=== PATIENT | female | born 1990 | race Asian ===

== ENCOUNTER 2018-10-27 16:09 | Inpatient (IN) | payer OTHER ==
[~2018-10-27] VITALS: Ht 165.1 cm; Wt 54.0 kg
[2018-10-27] MEDS ORDERED: FAMOTIDINE(*) 20MG/50ML PREMIX 50 ML IVPB PRN (17:22)
[2018-10-27] MEDS ORDERED: DLR(*) 1000 ML BAG 1,000 ML IV PRN (17:22)
[2018-10-27] MEDS ORDERED: OXYTOCIN 30 UNIT/NS 500 ML 500 ML IV PRN (17:22)
[2018-10-27] MEDS ORDERED: FLUSH 10 ML SYR IVP PRN (17:25)
[2018-10-27] MEDS ORDERED: LIDOCAINE 1% LOCAL 300 MG/30ML INJ PRN (17:25)
[2018-10-27] MEDS ORDERED: DINOPROSTONE 10 MG INSERT PV ONE (17:25)
[2018-10-27] MEDS ORDERED: cefOXitin/DEX(*) 2GM/50ML PREM 50 ML IVPB PRN (17:25)
[2018-10-27] MEDS ORDERED: METOCLOPRAMIDE 10 MG/2 ML SDV IVP PRN (17:25)
[2018-10-27] MEDS ORDERED: fentaNYL CITR 100 MCG/2 ML AMP IVP PRN (17:25)
[2018-10-27 17:55] LABS: PLATELET COUNT, AUTOMATED 184 K/uL (150-450)
[2018-10-27] MEDS: LR(*) 1000 ML BAG 1,000 ML IV PRN (18:28)
--- NOTE | 2018-10-27 23:19 | Anesthesia OB Pre-Anes Eval ---
History of Present Illness Anesthesia Start Date: Oct 27, 2018 Anesthesia Start Time: 23:02 OB Anesthesia Diagnosis: spontaneous ROM, other (labor augmentation r/t SROM) Complications: None known EDC: Nov 14, 2018 : 1 Para: 0 Pain Ratin (Pt demonstrates anxiety and pain. IV pain med discussed with pt. and her RN, until regular contraction pattern is established and pt progresses into labor.) Heart Tones: 133 Result Diagram: 10/27/18 1744 Height (Inches): 65 Weight (Pounds): 119 BMI (kg/m2): 19 GBS neg Past Medical History Medical History: no pertinent history (Pt denies all medical problems) Surgical History: no surgical history Attended Childbirth Classes?: No Hx Anesthesia Reactions: No Hx Family Anesthesia Reaction: No Current Medications: pitocin Allergies: Coded Allergies: Penicillins (Verified Allergy, Intermediate, Rash/ swelling, 10/27/18) Anesthesia OB ROS Neurological: No migraines/headaches, No seizures, No neuropathy, No other Eyes ROS: contacts out ENT: Denies Tooth caps, Denies Loose teeth, Denies Chipped teeth, Denies Dentures, Denies Bridges, Denies Retainers, Denies Veneers, Denies Implants, Denies Tongue ring, Denies Other Pulmonary: No asthma, No smoker (pks/day/yrs), No other Airway Class: ll Cardiovascular ROS: No edema, No arrhythmia, No other GI ROS: clear liquids Last Solids Date: Oct 27, 2018 Last Solids Time: 15:00 ROS: No Herpes, No STD(s), No Liver Disease, No Renal Disease, No Other Endocrine ROS: No diabetes, No gestational diabetes, No thyroid disorder, No other Musculoskeletal ROS: No low back pain, No low back injury, No scoliosis, No other ASA Classification: 2 Assessment and Plan Anesthesia Plan: CSE Assessment: Anxious and pacing room. Pt. demonstrates good understanding of Polish, through appropriate questions, during explantion of risks alternatives and emergency procedures. Her mother is at her side and speaks tristanian only, but is calm and supportive. MACKENZIE TRAORE CRNA Oct 27, 2018 23:19
[2018-10-28] MEDS ORDERED: ZOLPIDEM TARTRATE 5 MG TAB PO ONE (00:30)
[2018-10-28] MEDS: fentaNYL CITR 100 MCG/2 ML AMP IVP PRN ×2 (01:45→03:39)
[2018-10-28] MEDS: LR(*) 1000 ML BAG 1,000 ML IV PRN ×2 (03:30→04:03)
[2018-10-28] MEDS ORDERED: fentaNYL CITR 100 MCG/2 ML AMP IT PRN (04:10)
[2018-10-28] MEDS ORDERED: LIDO/EPI 2% MPF 1:200,000 20ML EPI PRN (04:10)
[2018-10-28] MEDS ORDERED: diphenhydrAMINE 50 MG/ML VIAL IV PRN (04:10)
[2018-10-28] MEDS ORDERED: NALBUPHINE HCL 10 MG/ML AMP IVP PRN (04:10)
[2018-10-28] MEDS ORDERED: FENTANYL/ROPIVACAINE 100 ML BAG EPI PRN (04:10)
[2018-10-28] MEDS ORDERED: BUPIVACAINE 0.25% MPF INJ EPI PRN (04:10)
[2018-10-28] MEDS ORDERED: BUPIVACAINE 0.5% INJ 30ML VIAL EPI PRN (04:10)
[2018-10-28] MEDS ORDERED: LIDOCAINE/PF 2% 200MG/10ML AMP 200 MG/10 ML AMPUL EPI PRN (04:10)
[2018-10-28] MEDS ORDERED: NALOXONE HCL 0.4 MG/ML VIAL IV PRN (04:10)
[2018-10-28] MEDS ORDERED: fentaNYL CITR 100 MCG/2 ML AMP ONE (04:14)
[2018-10-28] MEDS ORDERED: FENTANYL/ROPIVACAINE 100ML BAG 100 ML ONE (04:14)
[2018-10-28] MEDS ORDERED: BUPIVACAINE 0.25% MPF INJ ONE (04:14)
--- NOTE | 2018-10-28 05:19 | Procedure Note ---
Anesthetic Placement Note Anesthesia Plan: CSE Permit for Anesthesia Signed: Yes Anesthesia Technique: Patient Sitting Anesthesia Prep: Chlorhexidine (Sterile hand scrub, Time out, pt w hat, COMMUNITY DEVELOPMENT WORKER hat sterile gloves and mask, traffic stopped. Clear fenestrated drape.) Interspace: L 3-4 (midline) Local Anesthetic: 1% Lidocaine, 25 Gauge Needle Amount Local - cc's: 2 Anesthesia Needle: 17g Touhy/Schliff Loss of Resistance: Normal Saline Epidural Needle Placement: No CSF, No Blood, No Parasthesia Intrathecal Needle: 27 Gauge Pencan Cerebral Spinal Fluid: Yes, Clear Catheter Insertion (cm): 3.4 Catheter Type: Hamm - Spring Wound Epidural Dressing: Tegaderm, Tape (left abdomen) Anesthesia Tray: Lot Number ([id number]), Expiration Date (2019-10-05), Reference Number ([id number]) Comment: describes 9/10 pain at peak contraction. Pt. is stable alert and cooperative. Anesthesia Medications: Intrathecal Dose: mcg Fentanyl (15 mcg), mg Marcaine MPF (2), Time (0428) Epidural Test Dose: 1.5 Lido/Epi (1:200,000), Dose - mL (3), Time (0431), Negative Epidural Infusion: 0.2% Ropivicaine, With Fentanyl 2mcg/ml, Start Time: (0450) Epidural Pump Setting: Bolus Dose - mL (5), Lockout - Minutes (20), Maintenance Rate - mL/hr ( 7), Maximum per Hour - mL (22) Complications: None Comment: Pt reports decrease in pain from 9/10 to 1/10 within 3 minutes of intrathecal dose. MACKENZIE SWEET CRNA Oct 28, 2018 05:19
--- NOTE | 2018-10-28 12:07 | Anesthesia Progress Note ---
Progress/Maintenance Anesthesia Note Date: Oct 28, 2018 Anesthesia Note Time: 09:30 Pain Intensity: 6 (patient has used the pt administered bolus feature x 2 in the last hour. She is starting into transition.) Pump: On Pump Rate (ML/HR): 7 Sensory Level: T-8 Motor Level: Bending Knees-Bilateral (Left leg block > right.) Dilatation: 6 Position: Left, Tilt Drug Bolus: 0.25% Marcaine (5), Other (Fentanyl 50 mcg) Anesthesia Treatment: relief of carey on right 10 minutes after this bolus with reposition MACKENZIE REDDY CRNA Oct 28, 2018 12:07
[2018-10-28] MEDS ORDERED: INFLUENZA VIRUS VAC 0.5ML SYR IM ONLY ONE (12:10)
[2018-10-28] MEDS ORDERED: HYDROCORTISONE 2.5% CR 30GM TB PR PRN (12:10)
[2018-10-28] MEDS ORDERED: LANOLIN OINT 7 GM TUBE TP PRN (12:10)
[2018-10-28] MEDS ORDERED: BENZOCAINE 20% 60 ML BTL TP PRN (12:10)
[2018-10-28] MEDS ORDERED: GLYCERIN/WITCH HAZEL LEAF 1 PK TP PRN (12:10)
[2018-10-28] MEDS ORDERED: MAGNESIUM HYDROXIDE* 30ML UDCP PO PRN (12:10)
--- NOTE | 2018-10-28 12:15 | History & Physical ---
History of Present Illness Age of Patient: 28 : 1 Para or TPAL: 0 EDC per LMP: Nov 14, 2018 Estimated Gestational Age: 37.4 Chief Complaint SROM History of Present Illness Presents with spontaneous rupture of membranes at 1545. Pt was 1.5 cm dilated and Cervidil placed for cervical ripening. Clear fluid. has been u ncomplicated. Past Medical, Surgical, Family and Obstetric Histories reviewed. Please see OG chart. History Allergies: Coded Allergies: Penicillins (Verified Allergy, Intermediate, Rash/ swelling, 10/27/18) Review of Systems All Systems Reviewed/Normal: Yes, Except as Noted Exam General Exam General Apperance: Alert/Awake/No Acute Distress Neuro: No Gross deficits Cardiovascular: Regular Rate and Rhythm Respiratory: No Respiratory Distress Abdomen: Soft, Non-Tender, Non-Distended Extremities: No Cyanosis,Clubbing or Edema Integumentary: Skin Intact without Lesions or Rash Psychological: Alert & Oriented X3, Appropriate Mood & Affect Vaginal Discharge/Fluid?: Bloody Show, Clear Fluid Cervical Dialation: 1.5 Fetus Heart Tone Variabilty: Moderate FHT Accelerations: 15X15 FHT Category: I Medical Decision Making Data Points Result Diagram: 10/27/18 1744 VTE Prophylasis: Adult Deep Vein Thrombosis/Pulmonary: No Pharmacological Contraindicati: Pt at Low Risk for VTE Mechanical Contraindications: Pt at Low Risk for VTE Assessment and Plan CORRECTIONAL THERAPY DIRECTOR Plan: Routine Labor Care, Routine Labor/Induct Care Problems: (1) Normal labor (2) 37 weeks gestation of LAURA RICHARDS MD Oct 28, 2018 12:15
--- NOTE | 2018-10-28 12:20 | OB Delivery Note ---
Delivery Note Vaginal Delivery Type: Vacuum (+3/3 station, Kiwi vacuum, single contraction with assistance) Delivery Date: Oct 28, 2018 Delivery Time: 11:34 Estimated Gestational Age(wks): 37.4 Delivery Anesthesia: Epidural Infant Sex: Male Apgars: 1 Minute (8), 5 Minute (9) Repair Needed: Laceration, 2nd Degree Estimated Blood Loss: 300 Delivery Complications: Laceration Notes: Progressed with Cervidil overnight to 3 cm dilation to 0445. Pt was 9 cm by 0954 and complete at 1027. Effective pushing but prolonged deceleration noted after contraction near the end. Consent for vacuum assistance obtained. Kiwi vacuum easily applied and over next contraction delivery over second degree laceration. Nuchal cord x 1 tight, delivered through. Placenta delivered intact and spontaneous. Repair with 2-0 chromic with excellent result. No complications. Bracer in Attendence: No Copies to: LAURA RICHARDS MD ; LAURA RICHARDS MD Oct 28, 2018 12:19
--- NOTE | 2018-10-28 12:22 | Anesthesia Progress Note ---
Progress/Maintenance Anesthesia Note Date: Oct 28, 2018 Anesthesia Note Time: 12:04 Pain Intensity: 0 Pump: Off (Turned off after 2 degree vaginal tear repaired 1200) Pump Rate (ML/HR): 0 Sensory Level: T-10 bilat Motor Level: Bending Knees-Bilateral Position: Semi-Fowlers (Holding to breast. Delivery at 1134. Ane sthesia stopped when epidural pump turned off, after 2nd degree vaginat tear repair.) MACKENZIE TRAORE CRNA Oct 28, 2018 12:22
[2018-10-28] MEDS: IBUPROFEN 800 MG TAB PO SCH ×2 (14:16→22:15)
[2018-10-28 16:40] VITALS: BP 95/51
[2018-10-28] MEDS: DOCUSATE CALCIUM 240 MG CAP PO SCH (19:26)
[2018-10-28] MEDS: APAP/HYDROCODONE 325/5 TAB PO PRN (19:26)
[2018-10-28 20:30] VITALS: BP 103/68
[2018-10-29 00:45] VITALS: BP 94/58
[2018-10-29] MEDS: APAP/HYDROCODONE 325/5 TAB PO PRN (01:46)
[2018-10-29 05:00] VITALS: BP 91/51
[2018-10-29] MEDS: IBUPROFEN 800 MG TAB PO SCH ×2 (07:13→15:09)
[2018-10-29 08:00] VITALS: BP 94/62
[2018-10-29] MEDS: ACETAMINOPHEN 325 MG TAB PO PRN ×2 (08:02→15:09)
--- NOTE | 2018-10-29 08:06 | OB/GYN Progress Note ---
OB Subjective Progress Notes Subjective Doing well. Pain well controlled and ambulating and voiding well. Bleeding light. GI: NEG Nausea : Voiding Well Pain: Mild OB Objective Physical Exam Vital Signs Date Time Temp Pulse Resp B/P (MAP) Pulse Ox O2 Delivery O2 Flow Rate FiO2 10/29/18 05:00 97.2 63 16 91/51 (64) 95 Room Air Intake and Output 10/29/18 07:03 Intake Total 500 ml Output Total 400 ml Balance 100 ml Intake Oral 0 ml IV Total 500 ml Output Urine Total 400 ml # Voids 2 General Appearance: Alert/Awake/No Acute Distress Neurological: No Gross deficits Cardiovascular: Normal Rhythm & Peripheral Pulses, Regular Rate and Rhythm Respiratory: No Respiratory Distress, Clear to Auscultation Abdomen: Soft, Non-Tender, Non-Distended, Fundus Firm, Non-Tender Extremities: No Cyanosis,Clubbing or Edema Integumentary: Skin Intact without Lesions or Rash Psychological: Alert & Oriented X3, Appropriate Mood & Affect Result Diagram: 10/29/18 0606 Assessment and Plan MANUFACTURING OPERATIONS MANAGER Plan: Routine Post- Care, Discharge Home Today Problems: (1) Normal labor (2) 37 weeks gestation of (3) care and examination immediately after delivery Assessment & Plan: Home today. Reviewed discharge instructions and precautions. F/U at 6 weeks in office. LAURA RICHARDS MD Oct 29, 2018 08:06
[2018-10-29] MEDS ORDERED: IBUP800T37 PO (08:07)
--- NOTE | 2018-10-29 08:09 | OB/GYN Discharge Summary ---
Discharge Summary Reason for Hosp/Final Diag: (1) Normal labor (2) 37 weeks gestation of (3) care and examination immediately after delivery Lates Vital Signs Vital Signs Date Time Temp Pulse Resp B/P (MAP) Pulse Ox O2 Delivery O2 Flow Rate FiO2 10/29/18 05:00 97.2 63 16 91/51 (64) 95 Room Air Weight (Pounds): 119 Result Diagram: 10/29/1806 Condition: Improved Discharge: Home, Self Halfway Meds No Active Prescriptions or Reported Meds Follow up Referrals: WINDLACE MACHINE OPERATOR - In 6 Weeks @ [facility] with LAURA JOY MD Follow up with: Dr. Joy [phone] Follow up in: 6 wks PP or PO Discharge Diet: As Tolerates Discharge Activity: As Tolerates, No Heavy Lifting x 6 wks, No Heavy Lifting > 10lb, Pelvic Rest Copies to: LAURA JOY MD ; LAURA JOY MD Oct 29, 2018 08:08
[2018-10-29] MEDS ORDERED: MEASLES,MUMP,RUBELLA VAC 0.5ML SUBQ ONE (09:00)
[2018-10-29] MEDS ORDERED: DIPHTH/TETANUS/ACEL. PERTUSSIS IM ONLY ONE (09:00)
[2018-10-29] MEDS: DOCUSATE CALCIUM 240 MG CAP PO SCH (09:22)
[2018-10-29 11:31] VITALS: BP 102/60
--- NOTE | 2018-10-29 15:30 | Anesthesia Post Eval Note ---
Anesthesia Post Eval Note Hematology Test 10/27/18 17:44 10/29/18 06:06 Neutrophils (%) (Auto) 73.9 % (39.4-72.5) H Lymphocytes (%) (Auto) 15.6 % (17.6-49.6) L Monocytes (%) (Auto) 8.6 % (4.1-12.4) Eosinophils (%) (Auto) 1.5 % (0.4-6.7) Basophils (%) (Auto) 0.4 % (0.3-1.4) Nucleated RBC Relative Count (auto) 0.0 /100WBC Neutrophils # (Auto) 7.5 K/uL (2.0-7.4) H Lymphocytes # (Auto) 1.6 K/uL (1.3-3.6) Monocytes # (Auto) 0.9 K/uL (0.3-1.0) Eosinophils # (Auto) 0.2 K/uL (0.0-0.5) Basophils # (Auto) 0.0 K/uL (0.0-0.1) Nucleated RBC Absolute Count (auto) 0.00 K/uL White Blood Count 13.9 k/uL (4.5-11.0) H Red Blood Count 3.06 M/uL (4.17-5.56) L Hemoglobin 10.1 g/dL (12.0-16.0) L Hematocrit 29.8 % (34.0-47.0) L Mean Corpuscular Volume 97.6 fL (80.0-96.0) H Mean Corpuscular Hemoglobin 33.1 pg (26.0-33.0) H Mean Corpuscular Hemoglobin Concent 33.9 g/dL (32.0-36.0) Red Cell Distribution Width 14.5 % (11.5-14.5) Platelet Count 152 K/uL (150-450) Mean Platelet Volume 7.9 fL (7.2-11.1) Vital Signs Date Time Temp Pulse Resp B/P (MAP) Pulse Ox O2 Delivery O2 Flow Rate FiO2 10/29/18 11:31 97.2 61 14 102/60 (74) 95 Room Air Pt able to participate in Eval: Yes Cardiovascular Status: Satisfactory Respiratory Status: Satisfactory Pain Managment: Satisfactory PO Nausea/Vomiting: Satisfactory Temperature Management: Satisfactory Mental Status: Satisfactory, Alert, Oriented X3 Post-Op Hydration Status: Satisfactory, Tolerating PO Well, Voiding w/o Difficulty Anesthesia Type: CSE Anesthesia Tolerance: Has ambulated, denies VALDEZ, itching or other. Stick site is w/o redness swelling or drainage. MACKENZIE TRAORE PLATE AND FRAME FILTER OPERATOR Oct 29, 2018 15:30
== END 2018-10-29 15:25 | disposition home or self-care (01) | DRG 807 ==
LOC: OBSVTOIN 16:09 → OB 16:09
PROVIDERS: ADMIT Obstetrics & Gynecology; ATTEND Obstetrics & Gynecology
PROC: 10D07Z6 Extraction of Products of Conception, Vacuum, Via Natural or Artificial Opening (ICD-10-PCS; principal; 2018-10-27)
PROC: 0KQM0ZZ Repair Perineum Muscle, Open Approach (ICD-10-PCS; 2018-10-27)
DX: O69.1XX0 Labor and delivery complicated by cord around neck, with compression, not applicable or unspecified (principal); Z37.0 Single live birth; Z3A.37 37 weeks gestation of pregnancy; Z88.0 Allergy status to penicillin; O70.1 Second degree perineal laceration during delivery
CPT/HCPCS: 36415; 84112; 85025; 85027; 86850; 86900; 86901; J3010; J7120; S0020